=== PATIENT | male | born 1995 | race Caucasian/White ===

== ENCOUNTER 2022-06-08 14:45 | Emergency (ER) | payer MEDICAID ==
[~2022-06-08] VITALS: Ht 167.6 cm; Wt 75.0 kg
[2022-06-08 15:12] VITALS: BP 124/76
[2022-06-08] MEDS ORDERED: CARB15DR63 LEFT EAR (19:00)
== END 2022-06-08 19:23 | disposition home or self-care (01) ==
LOC: ER 14:45
DX: H61.22 Impacted cerumen, left ear (principal)
CPT/HCPCS: 99282